=== PATIENT | female | born 1970 | race Caucasian/White ===

== ENCOUNTER 2018-07-13 11:42 | Emergency (ER) | payer OTHER ==
[~2018-07-13] VITALS: Ht 162.6 cm; Wt 90.7 kg
[2018-07-13 11:47] VITALS: Ht 162.6 cm; Wt 90.7 kg
--- NOTE | 2018-07-13 12:04 | NUR ---
PATIENT PRESENTS TO ED WITH C/O CHEST PAIN AND PALPITATIONS SINCE 0500 TODAY. STS SHE WENT TO HER PA, AND HER PA SENT HER TO URGENT CARE. URGENT CARE TOOK AN EKG AND ADVISED PATIENT TO GO TO ER. PATIENT STS HER CHEST PAIN FEELS LIKE PRESSURE AND STS SHE FEELS HER HEART IS GOING FASTER AT TIMES. STS SHE DOES NOT HAVE A HISTORY OF HEART ISSUES, STS SHE HAS HISTORY OF ANXIETY. BREATHING IS E/U, BILATERAL CHEST RISE. BED AT LOWEST POSITION. DR. JENKINS AT BEDSIDE PERFORMING MSE
[2018-07-13 12:30] LABS: BASOPHIL % 0.6 % (0-2); PLATELET COUNT 328 x10^3mcL (130-400); RED CELL DISTRIBUTION WIDTH 14.2 % (11.5-14.5)
--- NOTE | 2018-07-13 12:37 | NUR ---
PT RESTING AT BEDSIDE IN NAD. ASKS FOR THE LIGHTS TO BE DIMMED AND FOR A BLANKET FOR COMFORT. PATIENT BREATHING E/U, BILATERAL CHEST RISE. BED AT LOWEST LEVEL. CALL LIGHT IN REACH.
[2018-07-13 12:43] LABS: CALCIUM 8.6 mg/dL (8.5-10.1); CARBON DIOXIDE 27.3 mmol/L (21-32); CHLORIDE SERUM 103 mmol/L (98-107); CREATININE SERUM 0.8 mg/dL (0.6-1.0); GFR1 > 60 mL/min; GLUCOSE SERUM 99 mg/dL (74-106); POTASSIUM SERUM 4.1 mmol/L (3.5-5.1); SODIUM SERUM 139 mmol/L (136-145)
[2018-07-13 12:47] LABS: ALBUMIN 3.6 g/dL (3.4-5.0); ALKALINE PHOSPHATASE 91 U/L (46-116); ALT/SGPT 24 U/L (14-59); AST/SGOT 21 U/L (15-37); BILIRUBIN TOTAL 0.53 mg/dL (0.20-1.00); TOTAL PROTEIN, SERUM 7.7 g/dL (6.4-8.2)
--- NOTE | 2018-07-13 14:37 | NUR ---
LYNN CASE MANAGEMENT FROM [facility] CALLED AND INQUIRY CURRENT VITALS, LABS AND REASON TO NOT TRANSPORT PT TO CONTRACTED FACILITY. PER LYNN, SHE WILL CONTACT "DR FROST" TO SPEAK WITH DR JENKINS. DR JENKINS MADE AWARE.
--- NOTE | 2018-07-13 14:59 | NUR ---
PER DR. JENKINS, PATIENT IS TO BE TRANSFERRED AND NOT ADMITTED TO TELE
--- NOTE | 2018-07-13 15:18 | NUR ---
PT RESTING AT BEDSIDE IN NAD. STS SHE HAS 0/10 PAIN. BREATHING E/U, BILATERAL CHEST RISE. BED AT LOWEST POSITION. CALL LIGHT IN REACH
--- NOTE | 2018-07-13 16:49 | NUR ---
REPORT OFF TO CECILLE EPPERSON AT [facility].
--- NOTE | 2018-07-13 17:38 | NUR ---
PT RESTING AT BEDSIDE IN NAD. BREATHING E/U, BILATERAL CHEST RISE. BED AT LOWEST LEVEL. CALL LIGHT IN REACH.
[2018-07-13 18:15] VITALS: BP 137/78
== END 2018-07-13 18:15 | disposition short-term general hospital (02) ==
LOC: ED 11:42 → DU 14:04 → ED 14:04 → DU 14:32
PROVIDERS: Emergency Medicine
DX: R07.89 Other chest pain (principal); R00.2 Palpitations; F41.9 Anxiety disorder, unspecified
CPT/HCPCS: 36415; 85378; Q0092